=== PATIENT | male | born 1960 ===

== ENCOUNTER 2016-08-25 07:49 | Day surgery (SDC) | payer OTHER ==
[2016-08-25 08:08] VITALS: BMI 34.3
[2016-08-25] MEDS ORDERED: Propofol 10 mg/ml Inj (20 ML) ONE (10:18)
[2016-08-25 11:07] VITALS: TEMP 97
[2016-08-25 11:34] VITALS: RESP 12; O2SAT 100
[2016-08-25 12:51] VITALS: BP 118/78; PULSE 70
== END 2016-08-25 12:25 | disposition home or self-care (01) ==
LOC: C.ENDO 07:49
PROVIDERS: ATTEND Internal Medicine Gastroenterology
DX: K57.30 Diverticulosis of large intestine without perforation or abscess without bleeding (principal); D12.5 Benign neoplasm of sigmoid colon; K64.8 Other hemorrhoids; K62.5 Hemorrhage of anus and rectum
CPT/HCPCS: 45380; 88305; J2704

== ENCOUNTER 2017-04-15 09:58 | Emergency (ER) | payer OTHER ==
[2017-04-15 09:59] VITALS: BMI 34.3
[2017-04-15 10:20] VITALS: BP 107/75; PULSE 87; RESP 18; TEMP 99.1; O2SAT 98
== END 2017-04-15 11:37 | disposition left against medical advice (07) ==
LOC: C.ER 09:58
DX: Z02.89 Encounter for other administrative examinations (principal); R05 Cough